=== PATIENT | male | born 1995 | race Caucasian/White ===

== ENCOUNTER 2017-05-02 07:16 | Emergency (ER) | payer OTHER ==
[~2017-05-02] VITALS: Ht 180.3 cm; Wt 104.3 kg
[2017-05-02] MEDS ORDERED: ADVIL200 M1 PO (07:28)
== END 2017-05-02 08:25 | disposition home or self-care (01) ==
LOC: ED 07:16
DX: S63.501A Unspecified sprain of right wrist, initial encounter (principal); F17.200 Nicotine dependence, unspecified, uncomplicated; Z79.899 Other long term (current) drug therapy; W18.30XA Fall on same level, unspecified, initial encounter; Y99.0 Civilian activity done for income or pay
CPT/HCPCS: 73110; 99283

== ENCOUNTER 2017-07-05 06:08 | Emergency (ER) | payer OTHER ==
[~2017-07-05] VITALS: Ht 180.3 cm; Wt 104.3 kg
[~2017-07-05 06:08] MED LIST: ADVIL200 M1 PO
[2017-07-05] MEDS ORDERED: BACTRIM DS TAB1 EACH PO (06:56)
[2017-07-05] MEDS ORDERED: NORCO 5-325 TA1 EACH PO (06:56)
[2017-07-05] MEDS ORDERED: CEPHALEXIN500 MG PO (06:56)
== END 2017-07-05 07:15 | disposition home or self-care (01) ==
LOC: ED 06:08
PROC: 0H97XZZ Drainage of Abdomen Skin, External Approach (ICD-10-PCS; principal; 2017-07-05)
DX: L02.211 Cutaneous abscess of abdominal wall (principal); E11.9 Type 2 diabetes mellitus without complications; Z79.899 Other long term (current) drug therapy
CPT/HCPCS: 10060; 87070; 87077; 87186; 87205; 99283

== ENCOUNTER 2021-02-17 16:34 | Emergency (ER) | payer OTHER ==
[~2021-02-17] VITALS: Ht 180.3 cm; Wt 104.3 kg
[~2021-02-17 16:34] MED LIST changes: +BACTRIM DS TAB1 EACH PO; +CEPHALEXIN500 MG PO; +NORCO 5-325 TA1 EACH PO
--- OUTSIDE RECORDS SUMMARY | 2021-02-17 16:38 | XMS ---
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 Chidi has no Care Guidelines for this patient. Ava VISIT COUNT (12 MO.) 1 MALIHA Hannah TOTAL 1 NOTE: Visits indicate total known visits. ED/C VISIT TRACKING (12 MO.) 02/17/2021 16:35 [facility] [place] TYPE: Emergency COMPLAINT: - NUMBNESS IN HANDS/ARMS INPATIENT VISIT TRACKING (12 MO.) No inpatient visits to display in this time frame [email or web address]
[2021-02-17] MEDS ORDERED: JANUVIA100 MG PO (16:50)
[2021-02-17] MEDS ORDERED: METFORMIN HCL1000 MG PO (16:50)
[2021-02-17] MEDS ORDERED: MELOXICAM7.5 MG PO (17:12)
== END 2021-02-17 17:24 | disposition home or self-care (01) ==
LOC: ED 16:34
DX: G56.03 Carpal tunnel syndrome, bilateral upper limbs (principal); E11.9 Type 2 diabetes mellitus without complications; Z79.899 Other long term (current) drug therapy; Z79.84 Long term (current) use of oral hypoglycemic drugs
CPT/HCPCS: 99283

== ENCOUNTER 2021-12-16 19:03 | Emergency (ER) | payer OTHER ==
[~2021-12-16] VITALS: Ht 180.3 cm; Wt 104.3 kg
[~2021-12-16 19:03] MED LIST changes: +JANUVIA100 MG PO; +MELOXICAM7.5 MG PO; +METFORMIN HCL1000 MG PO
--- OUTSIDE RECORDS SUMMARY | 2021-12-16 19:06 | XMS ---
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 Chidi has no Care Guidelines for this patient. Ava VISIT COUNT (12 MO.) 2 MALIHA Hannah TOTAL 2 NOTE: Visits indicate total known visits. ED/C VISIT TRACKING (12 MO.) 12/16/2021 19:04 [facility] [place] TYPE: Emergency COMPLAINT: - CHEST PAIN 02/17/2021 16:35 [facility] [place] TYPE: Emergency COMPLAINT: - NUMBNESS IN HANDS/ARMS DIAGNOSES: - Anesthesia of skin - Carpal tunnel syndrome, bilateral upper limbs - Type 2 diabetes mellitus without complications - [facility] (current) use of oral hypoglycemic drugs - Other nursing home (current) drug therapy INPATIENT VISIT TRACKING (12 MO.) No inpatient visits to display in this time frame [email or web address]
[2021-12-16] MEDS ORDERED: TRULICITY0.75 MG/0. SQ (19:15)
--- NOTE | 2021-12-19 09:30 | EKG ---
[facility] [address] [facility] [place] [address] Signed Sinus tachycardia Otherwise normal ECG No previous ECGs available Confirmed by JORGE LUIS CLANCY MD ([id number]) on 12/19/2021 9:30:04 AM Electronically Signed By: JORGE LUIS CLANCY MD 12/19/21 0930 PATIENT NAME: ADENIKE CHURCHILL JOSEFINA Electrocardiogram DATE OF : [birth year] PHYSICIAN: JORGE LUIS CLANCY MD REPORT #: [id number] REPORT IS CONFIDENTIAL AND NOT TO BE RELEASED WITHOUT AUTHORIZATION
== END 2021-12-16 20:45 | disposition home or self-care (01) ==
LOC: ED 19:03
DX: R00.2 Palpitations (principal); E11.9 Type 2 diabetes mellitus without complications; Z79.84 Long term (current) use of oral hypoglycemic drugs; Z79.899 Other long term (current) drug therapy
CPT/HCPCS: 36415; 80053; 83735; 85025; 93005; 93010; 99285-25

== ENCOUNTER 2025-04-21 17:10 | Emergency (ER) | payer OTHER ==
[~2025-04-21] VITALS: Ht 180.3 cm; Wt 91.0 kg
[~2025-04-21 17:10] MED LIST changes: +TRULICITY0.75 MG/0. SQ
--- OUTSIDE RECORDS SUMMARY | 2025-04-21 17:17 | XMS ---
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 EBrisa VISIT COUNT (12 MO.) 1 MALIHA Hannah TOTAL 1 NOTE: Visits indicate total known visits. ED/UCC VISIT TRACKING (12 MO.) 04/21/2025 17:11 MAL[facility] [place] TYPE: Emergency COMPLAINT: - INJURED FINGER INPATIENT VISIT TRACKING (12 MO.) No inpatient visits to display in this time frame [email or web address]
[2025-04-21] MEDS ORDERED: JARDIANCE25 MG PO (17:34)
[2025-04-21] MEDS ORDERED: DIPHTH,PERTUSS(ACELL),TET VAC 0.5 ML SYRINGE IM ONE ×2 (17:45→18:45)
[2025-04-21 18:50] VITALS: BP 134/86
== END 2025-04-21 18:50 | disposition home or self-care (01) ==
LOC: ED 17:10
DX: S67.194A Crushing injury of right ring finger, initial encounter (principal); E11.9 Type 2 diabetes mellitus without complications; W23.0XXA Caught, crushed, jammed, or pinched between moving objects, initial encounter; Z79.84 Long term (current) use of oral hypoglycemic drugs
CPT/HCPCS: 64450; 73130; 90471; 90715; 99283-25